=== PATIENT | male | born 1945 | race Caucasian/White ===

== ENCOUNTER 2017-11-12 13:04 | Emergency (ER) | payer MEDICARE ==
[2017-11-12] MEDS ORDERED: Adacel Vial IM ONE ×2 (13:34→13:39)
[2017-11-12] MEDS ORDERED: TORAdol 30 mg Injection IV ONE (13:35)
[2017-11-12] MEDS ORDERED: Zofran 4 MG/2 ML VIAL IV ONE (13:35)
[2017-11-12] MEDS ORDERED: Sodium Chloride 0.9% 1000 ML 1,000 ML IV STA (13:35)
[2017-11-12] MEDS ORDERED: MORPHINE SULFATE 10 MG/ML IV ONE (13:35)
[2017-11-12] MEDS ORDERED: Zofran 4 MG/2 ML VIAL ONE (13:38)
[2017-11-12] MEDS ORDERED: TORAdol 30 mg Injection ONE (13:38)
[2017-11-12] MEDS ORDERED: MORPHINE SULFATE 10 MG/ML ONE (13:38)
[2017-11-12] MEDS ORDERED: Sodium Chloride 0.9% 1000 ML 1,000 ML ONE (13:38)
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
[2017-11-12 13:45] LABS: BASOPHIL % 0.6 % (0.0-0.4); Basophil (Absolute #) 0.05 (0-0.4); Eosinophil % 0.4 % (0.00-5.0); Eosinophil (Absolute #) 0.03 (0-0.5); Granulocyte Absolute (ANC) 5.08 (1.4-6.9); Granulocytes % 65.8 % (36.0-66.0); Hematocrit 41.4 % (42-50); Lymphocyte (Absolute #) 1.54 (1.0-4.6); Lymphocytes % 19.9 % (24.0-44.0); Mean Cell Volume 89.6 fl (78-100); Mean Corpuscular Hemoglobin 30.3 pg (26-32); Mean Corpuscular Hgb Concent. 33.8 g/dl (32-36); Mean Platelet Volume 11.7 fl (6-9.5); Monocyte (Absolute #) 1.03 (0.0-1.3); Monocytes % 13.3 % (0.0-12.0); Platelet Count 206 K/mm3 (150-450); Red Blood Count 4.62 M/mm3 (4.1-5.6); Red Cell Distribution Width 13.6 % (11.5-14.0); White Blood Count 7.7 K/mm3 (4.0-10.5)
[2017-11-12 13:49] LABS: ANION GAP 13.9 MEQ/L (5-15); BLOOD UREA NITROGEN 17 mg/dL (9-20); CHLORIDE 106 mmol/L (98-107); Calcium 9.3 mg/dL (8.4-10.2); Carbon Dioxide 24 mmol/L (22-30); Creatinine 1 0.93 mg/dL (0.66-1.25); Glucose 105 mg/dL (74-106); Potassium 3.9 mmol/L (3.5-5.1); SODIUM 141 mmol/L (137-145)
[2017-11-12 14:26] VITALS: BP 133/77; PULSE 64
[2017-11-12 14:32] VITALS: O2SAT 95
== END 2017-11-12 15:00 | disposition short-term general hospital (02) ==
LOC: ED 13:04
DX: T20.212A Burn of second degree of left ear [any part, except ear drum], initial encounter (principal); T20.27XA Burn of second degree of neck, initial encounter; T20.23XA Burn of second degree of chin, initial encounter; X12.XXXA Contact with other hot fluids, initial encounter; Y93.H9 Activity, other involving exterior property and land maintenance, building and construction; Y92.009 Unspecified place in unspecified non-institutional (private) residence as the place of occurrence of the external cause; Z79.899 Other long term (current) drug therapy
CPT/HCPCS: 36000; 36415; 80048; 85025; 90471; 90715; 96360; 96374; 96375; 99285; J1885; J2270; J2405

== ENCOUNTER 2023-03-04 09:43 | Emergency (ER) | payer MEDICARE ==
[2023-03-04 09:55] VITALS: RESP 20; TEMP 97.2
[2023-03-04 11:06] VITALS: O2SAT 94
--- NOTE | 2023-03-04 11:07 | XRAY ---
CLINICAL HISTORY:left hip pain COMPARISON:None TECHNIQUE:CT scan of the pelvis was performed without IV contrast. Coronal and sagittal reconstructive images were obtained. CTDI 19.7, DPI 694.8. FINDINGS: Mild osteoarthritic changes of both hip joints as evidenced by reduced joint space, lateral acetabular marginal sclerosis, and osteophytes, and lateral femoral neck subchondral cysts. The hip joints reveal normal rounded contour. No evidence of articular collapse. No loose bodies. There is no evidence of joint effusion. Bilateral sacroiliac joints show degenerative changes. No evidence of obvious fracture noted at present examination. No lytic or sclerotic bone lesions. A calcification is seen related to left sided gluteal medius tendon insertion adjacent to greater trochanter. The visualized soft tissues show left large cystic lesion is likely inferior pole renal cyst, and enlarged prostate. IMPRESSION: Mild osteoarthritic changes of both hip joints. Calcific tendinitis of the left gluteus medius tendon. Suspected left renal cyst. US is advised. Prostatic enlargement. Electronically Signed by: Ping Sullivan MD. (03/04/2023 11:02:50 EST)
--- NOTE | 2023-03-04 11:33 | ERPHSYRPT ---
- History of Present Illness Time Seen by Provider: 03/04/23 10:07 Source: patient, family Exam Limitations: no limitations Patient Subjective Stated Complaint: Pt states "My left hip started to hurt a couple of days ago and I just seems to be getting worse." Triage Nursing Assessment: PT presented alert and oriented X 3, skin pwd. Pt ambulates with an upright steady gait, able to speak in clear full sentences. Pt has pain and tenderness to his left hip. Physician History: 78 years old with history of coronary artery disease status post CABG, hypertension presented in the ER with chief complaint of left hip pain for the last 2 to 3 days. Patient reports moderate intensity sharp pain in the left hip with ambulation and better with resting. Patient denies any fall or trauma but does remember having twisting his back which kind of triggered the pain few days ago. Patient reports having difficulty walking and has to use cane for ambulation. Denies any numbness tingling or weakness of lower extremities. De nies any back pain. No loss of bowel or bladder control or saddle anesthesia. Allergies/Adverse Reactions: Iodinated Contrast Media [IV Dye, Iodine Containing Contrast ] Allergy (Mild, Verified 05/24/14 19:23) Penicillins Allergy (Mild, Verified 05/24/14 19:23) clarithromycin [From Biaxin] Allergy (Verified 05/24/14 19:23) Home Medications: Tamsulosin HCl [Flomax] 0.4 mg PO DAILY 09/09/11 [History] Omeprazole 20 MG 20 mg PO DAILY 05/04/12 [History] Aspirin [Aspirin EC] 81 mg PO DAILY 05/24/14 [History] Cholecalciferol (Vitamin D3) [Vitamin D-3] 1 tab PO DAILY 05/24/14 [History] Atorvastatin Calcium [Lipitor 20MG Tablet] 20 mg PO DAILY 11/12/17 [History] Hx Tetanus, Diphtheria Vaccination/Date Given: No Hx Influenza Vaccination/Date Given: Yes Hx Pneumococcal Vaccination/Date Given: No Immunizations Up to Date: No Travel Risk - International Travel Have you traveled outside of the country in past 3 weeks: No - Coronavirus Screening Are you exhibiting any of the following symptoms?: No Close contact with a COVID-19 positive Pt in past 14-21 Days: No - Vaccine Status Have you recieved a Covid-19 vaccination: No - Review of Systems Constitutional: No Symptoms Ears, Nose, & Throat: No Symptoms Respiratory: No Symptoms Cardiac: No Symptoms Abdominal/Gastrointestinal: No Symptoms Genitourinary Symptoms: No Symptoms Musculoskeletal: Joint Pain Skin: No Symptoms Neurological: No Symptoms Hematologic/Lymphatic: No Symptoms Immunological/Allergic: No Symptoms - Past Medical History Pertinent Past Medical History: Yes Cardiac History: Coronary Artery Disease, High Cholesterol, Hypertension GI Medical History: Hernia Male Reproductive Disorders: Prostate Problems - Past Surgical History Past Surgical History: Yes Neuro Surgical History: No Pertinent History Cardiac: CABG Respiratory: No Pertinent History Gastrointestinal: Hernia Repair Genitourinary: No Pertinent History Musculoskeletal: No Pertinent History Male Surgical History: No Pertinent History - Social History Smoking Status: Never smoker Exposure to second hand smoke: No Drug Use: none Patient Lives Alone: No - Nursing Vital Signs Nursing Vital Signs: Initial Vital Signs Temperature 97.2 F 03/04/23 09:51 Pulse Rate 69 03/04/23 09:51 Respiratory Rate 20 03/04/23 09:51 Blood Pressure 135/60 03/04/23 09:51 O2 Sat by Pulse Oximetry 96 03/04/23 09:51 Pain Scale Pain Intensity 2 - Physical Exam General Appearance: no apparent distress, alert Neck Exam: normal inspection, full range of motion Cardiovascular/Respiratory Exam: normal breath sounds, regular rate/rhythm Gastrointestinal/Abdominal Exam: non-tender, soft, no organomegaly, No guarding Back Exam: normal inspection, normal range of motion, No CVA tenderness, No vertebral tenderness Hips Exam: right: non-tender, normal inspection, normal range of motion, left: bone tenderness, limited range of motion, pain, soft tissue tenderness (Lateral hip), bilateral: no evidence of injury Legs Exam: bilateral leg: non-tender, normal inspection, normal range of motion, no evidence of injury, abrasions Knees Exam: bilateral knee: non-tender, normal inspection, normal range of motion, no evidence of injury Ankle Exam: bilateral ankle: non-tender, normal inspection, normal range of motion, no evidence of injury Neuro/Tendon Exam: normal sensation, normal motor functions, normal tendon functions Mental Status Exam: alert, oriented x 3, cooperative Skin Exam: normal color SpO2 Interpretation: normal SpO2: 94 O2 Delivery: Room Air Ordered Tests: Active Orders 24 hr Category Date Time Status PELVIS WITHOUT CONTRAST [CT] Stat Exams 03/04/23 10:12 Completed - Progress Progress: unchanged, re-examined Progress Note: 03/04/23 11:31 78 years old is evaluated in the ER for left hip pain. Patient has no fall or trauma. Distal neurovascular intact. No midline back tenderness. Patient has some tenderness in the posterolateral aspect of left hip. Offered pain medication which he declined as he does not have any pain while resting. Patient ambulated in the ER with a cane. Patient has some limited range of motion left hip. I have obtained CT pelvis which showed gluteus medius calcific tendinitis but no other fracture or dislocation. Does have a renal cyst which needs further evaluation with ultrasound but patient does not have any flank/abdominal tenderness. I have offered pain medications here and also shot of steroid which patient does not want. No signs of septic joint. No cellulitis. I believe patient strained the muscle when he was twisting his back and also with walking during his vacation at [facility] with uneven surfaces. I would give him pain medications to go home and recommended outpatient orthopedics follow-up. Recommended using cane/walker to avoid a fall. Discussed signs symptoms of worsening needing return to ER which she seems understanding. Stable for discharge. 03/04/23 11:36 Counseled pt/family regarding: diagnosis, need for follow-up, rad results Medical Desision Making - Independent Historian Additional History obtained from: Spouse - Diagnostic Testing Diagnostic test were ordered, analyzed, and reviewed by me: Yes Radiological Interpretation: Reviewed by me, Teleradiologist Report - Risk of complications The pt has a mod risk of morbidity or mortality based on: Need for prescription drug management - Departure Departure Disposition: Home Clinical Impression: Tendinitis of hip, Renal cyst Condition: Stable Critical Care Time: No Referrals: REYNA MOTT MD [Primary Care Provider] - Follow up with PCP 2 days [facility] - MAYA ESTEVEZ NP [NON-STAFF PHY W/O PRIVILEGES] - Follow up/PCP as directed (In 2 days for reevaluation) Instructions: Tendinopathy, Hip Pain (DC) Additional Instructions: Intermittent ice application. Take pain medications as needed. Use cane/walker for ambulation to avoid a fall. Follow-up with orthopedics for reevaluation. Return to ER for worsening pain, difficulty ambulation or difficulty movements of the hip etc. follow-up with primary care for reevaluation of kidney cyst with ultrasound. Prescriptions: Oxycodone HCl/Acetaminophen [Oxycodone-Acetaminophen 5-325] 1 each PO Q6H PRN 3 Days #12 tablet MDD 4 PRN Reason: Pain
[2023-03-04 11:43] VITALS: BP 108/68; PULSE 65
== END 2023-03-04 11:53 | disposition home or self-care (01) ==
LOC: ED 09:43
DX: M76.02 Gluteal tendinitis, left hip (principal); N28.1 Cyst of kidney, acquired; M25.552 Pain in left hip; I10 Essential (primary) hypertension; E78.5 Hyperlipidemia, unspecified; Z79.891 Long term (current) use of opiate analgesic; Z79.899 Other long term (current) drug therapy; Z28.310 Unvaccinated for COVID-19
CPT/HCPCS: 72192; 99283

== ENCOUNTER 2024-04-08 18:54 | Emergency (ER) | payer MEDICARE ==
[2024-04-08 19:11] VITALS: RESP 18; TEMP 97.6
--- NOTE | 2024-04-08 19:26 | ERPHSYRPT ---
- History of Present Illness Time Seen by Provider: 04/08/24 19:10 Source: patient Exam Limitations: no limitations Patient Subjective Stated Complaint: "I was helping set a rat trap at my daughters house on Sunday and it went off and injured my finger". Triage Nursing Assessment: Pt Physician History: 79-year-old male presents to our ED with pain to his right middle finger. Patient states he was attempting to set up a rat trap and injured his finger. Injury occurred 2 days ago. However patient did not end immediately seek medical attention. Patient is here as the swelling and pain has gotten worse. No other trauma reported. Pain described as an ache that is localized. No radiation. Pain worse with movement and palpation. Pain improved with rest. Patient voices no other complaints or concerns at this time. Portions of this note were created with voice recognition technology. There may be grammatical, spelling, punctuation or sound alike errors Timing/Duration: day(s) (2 days ago) Severity: moderate Modifying Factors: Improves With: nothing Associated Symptoms: denies symptoms Allergies/Adverse Reactions: Iodinated Contrast Media [IV Dye, Iodine Containing Contrast ] Allergy (Mild, Verified 04/08/24 19:11) Penicillins Allergy (Mild, Verified 04/08/24 19:11) clarithromycin [From Biaxin] Allergy (Verified 04/08/24 19:11) Home Medications: Tamsulosin HCl [Flomax] 0.4 mg PO DAILY 09/09/11 [History] Omeprazole 20 MG 20 mg PO DAILY 05/04/12 [History] Aspirin [Aspirin EC] 81 mg PO DAILY 05/24/14 [History] Cholecalciferol (Vitamin D3) [Vitamin D-3] 1 tab PO DAILY 05/24/14 [History] Estazolam 0.5 tab PO HSPRN PRN 04/08/24 [History] Ezetimibe/Rosuvastatin Calcium [Rosuvastatin-Ezetimibe 40-10Mg] 1 tab PO DAILY 04/08/24 [History] tadalafiL [Adcirca] 20 mg PO UD 04/08/24 [History] Hx Tetanus, Diphtheria Vaccination/Date Given: Yes Hx Influenza Vaccination/Date Given: Yes Hx Pneumococcal Vaccination/Date Given: Yes Immunizations Up to Date: Yes Travel Risk - International Travel Have you traveled outside of the country in past 3 weeks: No - Emerging Infectious Disease Are you exhibiting symptoms associated with any current EIDs: No - Review of Systems Constitutional: No Symptoms, No Fever, No Chills Eyes: No Symptoms Ears, Nose, & Throat: No Symptoms Respiratory: No Symptoms, No Cough, No Dyspnea Cardiac: No Symptoms, No Chest Pain, No Edema, No Syncope Abdominal/Gastrointestinal: No Symptoms, No Abdominal Pain, No Nausea, No Vomiting, No Diarrhea Genitourinary Symptoms: No Symptoms, No Dysuria Musculoskeletal: No Symptoms, No Back Pain, No Neck Pain Skin: No Symptoms, No Rash Neurological: No Symptoms, No Dizziness, No Focal Weakness, No Sensory Changes Psychological: No Symptoms Endocrine: No Symptoms Hematologic/Lymphatic: No Symptoms Immunological/Allergic: No Symptoms All Other Systems: Reviewed and Negative - Past Medical History Pertinent Past Medical History: Yes Neurological History: No Pertinent History ENT History: No Pertinent History Cardiac History: Coronary Artery Disease Respiratory History: No Pertinent History Endocrine Medical History: No Pertinent History Musculoskeletal History: No Pertinent History GI Medical History: Hernia History: No Pertinent History Psycho-Social History: No Pertinent History Male Reproductive Disorders: Prostate Problems - Past Surgical History Past Surgical History: Yes Neuro Surgical History: No Pertinent History Cardiac: CABG Respiratory: No Pertinent History Gastrointestinal: Hernia Repair Genitourinary: No Pertinent History Musculoskeletal: No Pertinent History Male Surgical History: No Pertinent History - Social History Smoking Status: Never smoker Exposure to second hand smoke: No Drug Use: none Patient Lives Alone: No - Social Determinants of Health Will the patient participate in the screening: Yes Do you worry about a steady place to live?: No Do you have any problems with any of the following?: No known problems In the past 12 months,have you had to go without utilities?: No Transportation Issues: No Has anyone in your support network made you feel unsafe?: No Have you or anyone in your house had to go without enough: No - Nursing Vital Signs Nursing Vital Signs: Initial Vital Signs Temperature 97.6 F 04/08/24 19:04 Pulse Rate 61 04/08/24 19:04 Respiratory Rate 18 04/08/24 19:04 Blood Pressure 159/77 04/08/24 19:04 O2 Sat by Pulse Oximetry 98 04/08/24 19:04 Pain Scale Pain Intensity 2 - Physical Exam General Appearance: no apparent distress, alert Eye Exam: PERRL/EOMI, eyes nml inspection Ears, Nose, Throat Exam: normal ENT inspection, moist mucous membranes Neck Exam: normal inspection, full range of motion Respiratory Exam: normal breath sounds, lungs clear, airway intact, No respiratory distress Cardiovascular Exam: regular rate/rhythm, normal peripheral pulses Gastrointestinal/Abdomen Exam: soft, normal bowel sounds, No tenderness, No mass Back Exam: normal inspection, normal range of motion, No CVA tenderness, No vertebral tenderness Extremity Exam: normal inspection, normal range of motion, pelvis stable, other (Tenderness and swelling to the DIP and PIP joint.) Neurologic Exam: alert, oriented x 3, cooperative, normal mood/affect, sensation nml, No motor deficits Skin Exam: normal color, warm, dry, No rash Lymphatic Exam: No adenopathy SpO2 Interpretation: normal SpO2: 98 O2 Delivery: Room Air - Course Nursing assessment & vital signs reviewed: Yes - Radiology Exams Hand X-ray Interpretation: Interpreted by me (No fracture or dislocation) Ordered Tests: Active Orders 24 hr Category Date Time Status HAND (MINIMUM 3 VIEWS) Stat Exams 04/08/24 19:23 Taken - Progress Progress: improved Progress Note: 79-year-old male presents to our ED with pain to his right middle finger after blunt trauma secondary to setting up a rat trap. X-ray does not appear to have a fracture however formal read pending. Patient has his own AlumaFoam splint. No need for additional AlumaFoam splint. Patient declined pain medication. Patient resting comfortably. Patient only experiences discomfort when he tries flexing the digit. No other injuries reported. The involved digits neurovascular tact distally compartments are soft cap refill less than 2 seconds. Formal read pending. We will call patient later tonight with the radiologist formal read for Portions of this note were created with voice recognition technology. There may be grammatical, spelling, punctuation or sound alike errors Complexity of problem addressed is moderate acute complicated. No critical care time. Complex of data reviewed analyzes moderate. Test ordered chest reviewed results analyzed correlated clinically with history and physical exam. Dr. Goode independently reviewed the x-ray of patient's involved digit. Risk of complication and or risk of morbidity/mortality of patient management is low. Vital stable. Time spent to discharge patient is approximately 15 minutes. Plan of care established for shared decision making. No social determinants of health present to impede follow-up. Portions of this note were created with voice recognition technology. There may be grammatical, spelling, punctuation or sound alike errors 04/08/24 21:01 Counseled pt/family regarding: diagnosis, need for follow-up, rad results - Departure Departure Disposition: Home Clinical Impression: Finger contusion Condition: Stable Critical Care Time: No Referrals: REYNA MOTT MD [Primary Care Provider] - Follow up/PCP as directed MAYA ESTEVEZ NP [NON-STAFF PHY W/O PRIVILEGES] - Follow up/PCP as directed Instructions: Finger Sprain (DC) Additional Instructions: Discharge/Care Plan DERRICK CUEVAS was seen on 04/08/24 in the Emergency Room. The patient was counseled regarding Diagnosis,Lab results, Imaging studies, need for follow up and when to return to the Emergency Room. Prescriptions given: Discharge Note I have spoken with the patient and/or caregivers. I have explained the patient's condition, diagnosis and treatment plan based on the information available to me at this time. I have answered the patient's and/or caregiver's questions and addressed any concerns. The patient and/or caregivers have as good understanding of the patient's diagnosis, condition and treatment plan as can be expected at this point. The vital signs have been stable. The patient's condition is stable and appropriate for discharge from the emergency department. The patient will pursue further outpatient evaluation with the primary care physician or other designated or consulting physician as outlined in the discharge instructions. The patient and/or caregivers are agreeable to this plan of care and follow-up instructions have been explained in detail. The patient and/or caregivers have received these instruction. The patient/and or caregivers are aware that any significant change in condition or worsening of symptoms should prompt an immediate return to this or the closest emergency department or call 911.
[2024-04-08 20:20] VITALS: BP 150/77
[2024-04-08 20:32] VITALS: O2SAT 98
[2024-04-08 21:05] VITALS: PULSE 60
--- NOTE | 2024-04-09 08:40 | XRAY ---
Indication: Third finger pain and swelling following injury. Comparison: None 3 view right hand demonstrates osteopenia and mild/moderate degenerative changes all IP joints. No other bony, articular, or soft tissue abnormalities.
== END 2024-04-08 21:05 | disposition home or self-care (01) ==
LOC: ED 18:54
DX: S60.031A Contusion of right middle finger without damage to nail, initial encounter (principal); W23.0XXA Caught, crushed, jammed, or pinched between moving objects, initial encounter; Z79.899 Other long term (current) drug therapy
CPT/HCPCS: 73130; 99282; 99283